=== PATIENT | male | born 1965 | race Caucasian/White ===

== ENCOUNTER 2023-06-27 00:03 | Emergency (ER) | payer OTHER, SELFPAY ==
--- NOTE | 2023-06-27 00:21 | ECG_ITS ---
Test Reason : HIGH BP Blood Pressure : / mmHG Vent. Rate : 062 BPM Atrial Rate : 062 BPM P-R Int : 188 ms QRS Dur : 104 ms QT Int : 420 ms P-R-T Axes : 048 023 059 degrees QTc Int : 426 ms Normal sinus rhythm Normal ECG No previous ECGs available Referred By: Generic ED Physician Electronically Signed By:KALYAN WILLOUGHBY
[2023-06-27 00:22] VITALS: BP 187/83; PULSE 62; RESP 16; TEMP 36.7; O2SAT 97; BMI 39.0
[2023-06-27 00:46] LABS: MANUAL DIFF FLAG NO
[2023-06-27 00:48] LABS: Basophils Percent Auto 0.7 % (0-2); Eosinophils Absolute Auto 0.2 X10*3/uL (0.0-0.4); Hematocrit 38.6 % (42.0-52.0); Hemoglobin 13.9 g/dl (14.0-18.0); Imm Gran Abs Auto 0.01 X10*3/uL (0.00-0.03); Imm Gran Pct Auto 0.2 % (0.0-0.4); Lymphocytes Percent Auto 35.8 % (20-40); Mean Corpuscular Hemoglobin 29.8 pg (27.0-33.0); Mean Corpuscular Volume 82.8 fL (80.0-98.0); Mean Platelet Volume 9.6 fL (9.4-12.4); Monocytes Absolute Auto 0.6 X10*3/uL (0.1-1.2); Monocytes Percent Auto 10.9 % (2-11); Neutrophils Absolute Auto 2.8 x10*3/uL (2.0-8.3); Neutrophils Percent Auto 49.4 % (45-73); Platelet Count 168 X10*3/uL (160-400); Red Blood Count 4.66 X10*6/uL (4.60-5.80); White Blood Count 5.6 X10*3/uL (4.8-10.8)
[2023-06-27 00:59] LABS: Anion Gap 13 (12-20); Blood Urea Nitrogen 13 mg/dL (9-16); Calcium 8.9 mg/dL (8.4-10.2); Carbon Dioxide 25 mmol/L (22-29); Chloride 105 mmol/L (96-108); Estimated Glomerular Filt Rate > 60; Glucose Random 164 mg/dL (60-115); Potassium 3.5 mmol/L (3.3-5.1); Sodium 139 mmol/L (135-145)
[2023-06-27 01:08] LABS: Troponin-I High Sensitivity 6.6 ng/L (<3.5-35.0)
[2023-06-27 01:23] VITALS: BP 171/89; PULSE 59; RESP 18
[2023-06-27 02:00] VITALS: BP 164/82; PULSE 63; RESP 14
--- NOTE | 2023-06-27 02:00 | ED.GENADULT ---
HPI - General Adult General Chief complaint: General Medical Stated complaint: High blood pressure/chest discomfort Time Seen by Provider: 06/27/23 01:41 Source: patient Mode of arrival: ambulatory Limitations: no limitations History of Present Illness HPI narrative: Patient comes to the emergency room complaining of high blood pressure. Patient states that he takes losartan 100 mg and hydrochlorothiazide 25 mg every day and is compliant with his medications. Patient states that a few days ago he went to see his primary care physician for follow-up of vertigo, patient was told that his blood pressure was high. Patient was sent home with no changes in his medication, instructed to check his blood pressure several times, keep a log and then take it with him to his next appointment. Patient states that over last week, his blood pressure has been between 170 and 180. Today, patient had slight chest discomfort which already subsided, patient concerned about his high blood pressure. Patient denies any headache, no vision changes. Patient states that he used to take amlodipine but it was discontinued due to lower extremity edema. Related Data Previous Rx's Medication Instructions Recorded diltiazem HCl 120 mg 120 mg PO DAILY #30 caps 06/27/23 capsule,extended release 24 hr Allergies Allergy/AdvReac Type Severity Reaction Status Date / Time No Known Allergies Allergy Verified 06/27/23 00:35 Review of Systems Review of Systems: Constitutional : No Weight loss, No Fever, No Chills, No Night Sweats, No Fatigue, No Malaise ENT/Mouth : No Hearing loss, No Ear Pain, No Nasal Congestion, No Sinus Pain, No Hoarseness, No sore throat, No Rhinorrhea, No Swallowing Difficulty Eyes: No Eye Pain, No Swelling, No Redness, No Foreign Body, No Discharge, No Vision Changes Cardiovascular : Chest pressure earlier today, no longer having symptoms. Complaining of high blood pressure despite being compliant with medications. No SOB, No Dyspnea on Exertion, No Orthopnea, No Edema, No Palpitations Respiratory : No Cough, No Sputum, No Wheezing, No Smoke Exposure, No Dyspnea Gastrointestinal : No Nausea, No Vomiting, No Diarrhea, No Constipation, No abdominal Pain, No Hematochezia, No Melena Genitourinary : no irregular bleeding, No Dysuria, No Urinary Frequency, No Hematuria, No Urinary Incontinence, No Urgency, No Flank Pain, No Urinary Flow Changes, No Hesitancy Musculoskeletal : No joint pain, No Myalgias, No Joint Swelling Skin : No Skin Lesions, No rash Neuro : No Weakness, No Numbness, No Paresthesias, No Loss of Consciousness, No Dizziness, No Headache Psych : No Anxiety/Panic, No Depression, No SI/HI/AH/VH, No Social Issues, Heme/Lymph: No Bruising, No Bleeding,No Lymphadenopathy Endocrine : No Polyuria, No Polydipsia, No Temperature Intolerance [facility] Past Medical History Medical History (Updated 06/27/23 @ 03:38 by Jessica Gray MD) Hypertension Social History Social History Alcohol intake: current Alcohol intake frequency: holidays/special occasions only Smoked in Last 30 Days: No Use of substances other than those prescribed or required for medical reasons: No Advance Directives: No Advance Directives Information Provided: No Physical Exam ED Vital Signs: Vital Signs - 24 hr 06/27/23 00:22 06/27/23 01:23 06/27/23 02:00 Temperature 98.1 F Pulse Rate 62 59 63 Respiratory Rate 16 18 14 Blood Pressure 187/83 H 171/89 H 164/82 H Pulse Oximetry 97 Oxygen Delivery Method Room Air 06/27/23 02:58 Temperature 97.8 F Pulse Rate 59 Respiratory Rate 17 Blood Pressure 177/89 H Pulse Oximetry 99 Oxygen Delivery Method Room Air BMI result Body Mass Index 39.0 Const Other: Appearance: Alert. Oriented X3. No acute distress. Eyes: Pupils equal, round and reactive to light. ENT: Pharynx normal. Neck: Normal inspection. Neck supple. No lymph nodes noted. No crepitus CVS: Normal heart rate and rhythm. Pulses normal. Normal S1 and S2 Respiratory: No respiratory distress. Breath sounds normal. No Wheezing. No rales Abdomen: Soft and nontender. No rigidity. No distention. Skin: Skin warm and dry. Normal skin color. Normal skin turgor. Extremities: No lower extremity edema. No Lacerations. No Rash Neuro: Oriented X 3. No motor deficit. No sensory deficit. Moving all extremities. No slurred speech. CN 2 through 12 grossly intact Psych: calm, cooperative, normal affect Medications Administered Discontinued Medications Generic Name Dose Route Start Last Admin Trade Name Freq PRN Reason Stop Dose Admin Diltiazem HCl 60 mg 06/27/23 01:51 06/27/23 02:11 Diltiazem Hcl 60 Mg Tablet PO 06/27/23 01:52 60 mg ONCE ONE Administration Protocol Medical Decision Making Medical Decision Making MDM Narrative: -my interpretation of labs: Normal hematology chemistry and troponin -my interpretation of EKG: Normal sinus rhythm, heart rate 62, no ST segment depression or elevation, no T-wave inversion, QTC 426 -in the ED, patient's blood pressure between 170-190. Patient denies any chest pain at this time or headache. Heart rate in the high 50s, low 60s. -patient was given 60 mg of p.o. Cardizem. -patient blood pressure in the 160 systolic. Discussed with the patient that he may need a few doses at home. Discussed with the patient that significant blood pressure drop is not indicated either. Patient agreeable with plan, patient will follow-up with his PCP. Patient instructed to check his blood pressures in different settings tingling home enough pharmacy. Differential Diagnosis Differential Diagnoses: The differential diagnosis associated with the presentation includes (Chronic hypertension) Admission/Observation Consideration of admission/observation: Escalation of care including admission/observation considered (Given patient's vitals and symptoms, admission was considered.) Lab Data 06/27/23 00:41 06/27/23 00:41 Labs: Lab Results 06/27/23 Range/Units 00:41 WBC 5.6 (4.8-10.8) X10*3/uL RBC 4.66 (4.60-5.80) X10*6/uL Hgb 13.9 L (14.0-18.0) g/dl Hct 38.6 L (42.0-52.0) % MCV 82.8 (80.0-98.0) fL MCH 29.8 (27.0-33.0) pg MCHC 36.0 (31.0-36.0) g/dl RDW 12.0 (11.0-16.0) % Plt Count 168 (160-400) X10*3/uL MPV 9.6 (9.4-12.4) fL Immature Gran % (Auto) 0.2 (0.0-0.4) % Neut % (Auto) 49.4 (45-73) % Lymph % (Auto) 35.8 (20-40) % [place] % (Auto) 10.9 (2-11) % Eos % (Auto) 3.0 (0-4) % Baso % (Auto) 0.7 (0-2) % Lymph # (Auto) 2.0 (1.2-4.9) X10*3/uL [place] # (Auto) 0.6 (0.1-1.2) X10*3/uL Eos # (Auto) 0.2 (0.0-0.4) X10*3/uL Baso # (Auto) 0.0 (0.0-0.2) X10*3/uL Abs Immat Gran (auto) 0.01 (0.00-0.03) X10*3/uL Absolute Neuts (auto) 2.8 (2.0-8.3) x10*3/uL Absolute Nucleated RBC 0.000 (0.0-0.012) X10*3/uL Nucleated RBC % (auto) 0.0 (0.0-0.2) /100WBC Sodium 139 (135-145) mmol/L Potassium 3.5 (3.3-5.1) mmol/L Chloride 105 (96-108) mmol/L Carbon Dioxide 25 (22-29) mmol/L Anion Gap 13 (12-20) BUN 13 (9-16) mg/dL Creatinine 0.88 (0.5-1.4) mg/dL Estim Creat Clear Calc 112.0 Estimated GFR > 60 Random Glucose 164 H (60-115) mg/dL Calcium 8.9 (8.4-10.2) mg/dL Troponin I High Sens 6.6 (<3.5-35.0) ng/L Discharge Plan Discharge Clinical Impression: Hypertension Patient Disposition: Home, Self-Care Instructions: Hypertension (ED) Additional Instructions: Continue taking your current blood pressure medications. Please follow-up with your primary care physician tomorrow. If you have any worsening or new symptoms, please return to the emergency room or call 911 Prescriptions: New diltiazem HCl 120 mg capsule,extended release 24hr 120 mg PO DAILY Qty: 30 0RF
[2023-06-27] MEDS: dilTIAZem HCL 60 MG TABLET PO (02:11)
[2023-06-27 02:58] VITALS: BP 177/89; PULSE 59; RESP 17; TEMP 36.6; O2SAT 99
[2023-06-27 03:43] VITALS: BP 166/85; PULSE 56; RESP 14; TEMP 36.6
== END 2023-06-27 03:56 | disposition home or self-care (01) ==
PROVIDERS: Emergency Provider Emergency Medicine; PCP Internal Medicine
DX: I10 Essential (primary) hypertension (principal); Z79.899 Other long term (current) drug therapy
CPT/HCPCS: 36415; 80048; 84484; 85025; 93005; 99284

== ENCOUNTER → 2023-06-27 00:21 | Outpatient (BNV) | payer OTHER, SELFPAY | PROVIDERS: Emergency Provider Emergency Medicine; PCP Internal Medicine; Visit Provider Internal Medicine | DX: I10 Essential (primary) hypertension (principal) | CPT/HCPCS: 93010 ==